=== PATIENT | male | born 1950 | race Caucasian/White ===

== ENCOUNTER 2019-02-15 09:41 | Emergency (ER) | payer BC, OTHER ==
--- OUTSIDE RECORDS SUMMARY | 2019-02-15 10:42 | XMS REPORT | Summary of Care ---
:1950 Author Organization [facility] Address [address] [place] [address] Care Team Providers Name Role Phone Saturnino Vela Primary Care Provider Reason for Referral Diagnostic Radiology (Routine) Status Reason Specialty Diagnoses / Procedures Referred By Contact Referred To Contact Open Radiology Diagnoses Chronic pain of left lower extremity Berny Sams, Procedures Spect CT Bone Whole Body [address] [place] [address] Email: [email or web address] Reason for Visit Reason Comments New Patient Bone lesion Encounter Details Date Type Department Care Team Description 02/09/2019 [facility] A, Chronic pain of left LLP lower extremity [address] Yakov [address] (Primary Dx) [address] [place] [id number] [phone] Allergies Active Allergy Reactions Severity Noted Date Comments Atorvastatin Other (See Comments) 07/27/2016 Muscle cramps documented as of this encounter (statuses as of 02/09/2019) Medications Medication Sig Dispensed Refills Start Date End Date Status atenolol (TENORMIN) 50 Take 50 mg by 0 02/18/2016 Active MG tablet mouth daily lisinopril Take 10 mg by 0 02/18/2016 Active (PRINIVIL,ZESTRIL) 10 mouth daily MG tablet aspirin 81 MG tablet Take 81 mg by 0 Active mouth daily. Magnesium 250 MG TABS Take 1 tablet by 0 Active mouth Two Times Daily ibuprofen Take 200 mg by 0 Active (ADVIL,MOTRIN) 200 MG mouth every 6 tablet (six) hours as needed for Pain prednisoLONE Acetate Apply to eye 0 Active (PRED FORTE OP) documented as of this encounter (statuses as of 02/09/2019) Active Problems Problem Noted Date Chronic pain of left lower extremity 02/09/2019 Low back pain potentially associated with radiculopathy 10/09/2018 Trochanteric bursitis, left hip 10/09/2018 Primary osteoarthritis of left knee 05/02/2018 Chronic pain of left knee 04/03/2018 Primary osteoarthritis of left hip 07/27/2016 Status post total replacement of left hip 06/14/2016 Calf swelling 06/14/2016 Left hip pain 06/14/2016 Osteoarthritis of left hip 05/05/2016 Hypertension Sleep apnea documented as of this encounter (statuses as of 02/09/2019) Social History Tobacco Use Types Packs/Day Years Used Date Former Smoker 0 Quit: 03/06/1979 Smokeless Tobacco: Never Used Comments: smoked for about 5 years Alcohol Use Drinks/Week oz/Week Comments No Sex Assigned at Date Recorded Not on file Job Start Date Occupation Industry Not on file Not on file Not on file Travel History Travel Start Travel End No recent travel history available. documented as of this encounter Last Filed Vital Signs Vital Sign Reading Time Taken Comments Blood Pressure - - Pulse - - Temperature - - Respiratory Rate - - Oxygen Saturation - - Inhaled Oxygen Concentration - - Weight 136.1 kg (300 lb) 02/09/2019 8:01 AM EST Height 177.8 cm (5' 10") 02/09/2019 8:01 AM EST Body Mass Index 43.05 02/09/2019 8:01 AM EST documented in this encounter Patient Instructions Patient InstructionsKatrin Pantoja LPN - 02/09/2019 8:00 AM ESTThe patient is instructed to call the office with any question/concerns or if symptoms worsen. documented in this encounter Progress Notes Tunde De León MD - 02/09/2019 8:00 AM EST Chief Complaint Patient presents with New Patient Bone lesion Patient also seen by resident physician and examined under my supervision. Pérez portions of the history and examination were repeated by me, and the entire resident note was reviewed. Modifications tothat evaluation are detailed here. NEW PATIENT, INITIAL ENCOUNTER, LEFT THIGH PAIN Episode of Care: Initial Symptoms: Chronic Anatomical Site: distal thigh Laterality: Left Injury Cause and Place of Occurrence: N/A Fracture Healing Status: N/A CC: left distal thigh pain HPI: Dex is a 68 y.o. White or male with left distal thigh pain for about 1 year. The patient describes sharp pain in the lateral aspect of the distal thigh that begins as soon as he starts walking. He does not have the pain with standing. He notes the pain worsens climbing up and down stairs. He denies any trauma to the knee. He has seen Dr Bran in the past for this issue. He has a left total hip arthroplasty by Dr Morse in 2017. He had no issues with the thigh the first year after his surgery. He feels the pain started insidiously one year later. He was noted to have some cortical lucencies in the proximal and mid left femur on xray. These were further worked up with a CT and MRI. 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 The lucencies were not found to be aggressive in nature. Dr Bran did also order a SPEP/UPEP which were normal. He presents now for a second opinion regarding his pain. He denies any constitutional symptoms. 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 Attempted treatment thus far has included OTC NSAIDs, Tylenol, physical therapy and intra-atricularsteroid injections. The patients goal at this time is to find the source of his pain. PMHx: Reviewed on current visit information sheet. 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 Rash elbow rash Sleep apnea Past Surgical History: Procedure Laterality Date CATARACT EXTRACTION Bilateral COLONOSCOPY ELBOW SURGERY 1979 tumor removed from right elbow JOINT REPLACEMENT Right 2009 right hip replacement JOINT REPLACEMENT Left 05/05/2016 [facility] via [employer] @ [facility] DE TOTAL HIP ARTHROPLASTY Left 05/05/2016 Procedure: LEFT TOTAL HIP REPLACEMENT ([employer], [employer], [place], 2ND ASSIST); Surgeon: Abran Bran MD; Location: OR ; Service: Orthopedics ; Laterality: Left; Current Outpatient Medications: aspirin 81 MG tablet, Take 81 mg by mouth daily., Disp: , Rfl: atenolol (TENORMIN) 50 MG tablet, Take 50 mg by mouth daily , Disp: , Rfl: 0 ibuprofen (ADVIL,MOTRIN) 200 MG tablet, Take 200 mg by mouth every 6 ( six) hours as needed for Pain, Disp: , Rfl: lisinopril (PRINIVIL,ZESTRIL) 10 MG tablet, Take 10 mg by mouth daily , Disp: , Rfl: 0 Magnesium 250 MG TABS, Take 1 tablet by mouth Two Times Daily, Disp: , Rfl: prednisoLONE Acetate (PRED FORTE OP), Apply to eye, Disp: , Rfl: Allergies Allergen Reactions Lipitor [Atorvastatin] Other (See Comments) Muscle cramps PSoHx: Social History Tobacco Use Smoking status: Former Smoker Packs/day: 0.00 Last attempt to quit: 03/06/1979 Years since quittin.9 Smokeless tobacco: Never Used Tobacco comment: smoked for about 5 years Substance Use Topics Alcohol use: No Drug use: No FHx: Cancer-related family history includes Cancer in his maternal uncle and maternal uncle. Family History Problem Relation Age of Onset Heart disease Father father of heart attack Arthritis Father father had hip arthritis Heart disease Maternal Uncle had open heart surgery Cancer Maternal Uncle colon cancer Cancer Maternal Uncle colon cancer Stroke Maternal Grandmother ROS: Comprehensive review of systems completed by patient and reviewed by me. Pertinent positive findings include nothing else. Otherwise negative. PHYSICAL EXAM: Healthy-appearing, well-developed, well-nourished, alert and oriented x 3. Mood showing no evidence of agitation, anxiety, or depression. HEENT: Normocephalic and atraumatic to inspection and palpation. Sclerae anicteric. Extraocular muscles intact. No conjunctivitis. Pupils equal, round, and reactive to light and accommodation. Oropharynx clear with no lesions. Mucous membranes pink and moist. Hearing within normal limits. NECK: No palpable thyromegaly, adenopathy, or masses. HEART: Regular rate and rhythm without murmurs. LUNGS: Clear to auscultation. No rales, rhonchi, or wheezes. Respiratory effort normal. ABDOMEN: No hepatosplenomegaly or soft tissue masses. Soft and nontender. LYMPH : No cervical, epitrochlear or popliteal adenopathy. SKIN: No jaundice to inspection. No nodules to palpation. Bilateral elbow rash PERIPHERAL VASCULAR EXAM: No cyanosis, clubbing, or edema in the distal extremities. Pulses are palpable distally. NEURO/MUSCULOSKELETAL: LLE: Hip internal rotation is limited and causes pain that radiates into the lateral thigh. Hip externalrotation 35 degrees. Hip abduction and adduction normal. Knee ROM normal and painless. Tenderness to palpation of the distal IT band. Minimal GT bursal tenderness. No varus/valgus instability in the knee. No significant knee effusion +Sensation to light touch to distribution of deep peroneal / superficial peroneal / tibial / saphenous / sural nerves +EHL/FHL/TA/Gastroc Toes warm, well perfused; palpable dorsalis pedis and posterior tibial pulses Radiology Review: All imaging was reviewed by me with patient and/or family members. XR of the left femur demonstrate several small subcortical lucencies in the proximal and mid femur. There is no cortical erosion or periosteal reaction. Bilateral total hip prostheses with no evidence of loosening. "FINDINGS: Right: Right total hip arthroplasty is seen and the femoral and acetabular components arewell seated and articulate appropriately. No evidence of loosening, malalignment or periprosthesis fracture. Periarticular soft tissues are normal. Left: Left total hip arthroplasty is again seen and the femoral and acetabular components are well seated. No malalignment or evidence of loosening and there is no periprosthesis fracture. Thin lucencywithin the lateral proximal femoral shaft cortex at the level of the distal tip of the femoral stem is unchanged. In addition, few tiny additional lucencies within the lateral cortex at the mid left femoral shaft level are also unchanged. No periosteal reaction or endosteal scalloping. No associated soft tissue mass effect or soft tissue mass. IMPRESSION: 1. Overall, no significant interval change in asymmetric small lucencies within the lateral cortex of the proximal and mid left femoral shaft. No adjacent periostitis or endosteal reaction to suggest aggressive etiology and the lack of any significant interval change suggests nonaggressive, although nonspecific etiology. Continued radiographic follow-up is advised to confirm stability. 2. Satisfactory postoperative appearance of bilateral total hip arthroplasties. " " FINDINGS: Diffuse osteopenia. Postsurgical changes of left total hip arthroplasty are again seen, and metallic streak artifact from the arthroplasty mildly limits evaluation at some periprosthesis levels. The femoral and acetabular components appear well seated and articulate appropriately. No evidence of hardware loosening or failure. No periprosthesis fracture. Small longitudinal lucency within the proximal lateral femoral diaphysis at the level of the distal femoral stem is unchanged and corresponds to the lucency seen radiographically. Small additional cortical lucent defects within the lateral mid femoral shaft cortex are also unchanged, with additional small lucent cortical defect also noted within the posterior and medial mid femoral shaft cortex, although less prominent lateral foci. No endosteal scalloping or aggressive periosteal reaction or osseous erosion there is no adjacent soft tissue mass or soft tissue component. Patella is normal in position at the trochlear groove with moderate degenerative lateral patellofemoral joint space narrowing. 7.8 x 3.8 x 7.2 cm medial compartment proximal left thigh homogeneous lipoma is unchanged. IMPRESSION: 1. Satisfactory postoperative appearance of left total hip arthroplasty. 2. Stable multiple small lucent cortical foci within the proximal to mid left femoral shaft, which correspond to the lucencies described radiographically. The lack of any significant interval change and lack of any observed adjacent periostitis or endosteal scalloping overall favors nonaggressive etiology, although these remain nonspecific and continued follow-up exam is advised, and follow-up could be performed with radiographs. 3. Stable 7.8 x 3.8 x 7.2 cm left proximal thigh medial compartment lipoma. " To my review, the cortices may be thickened on both femurs. Assessment: 1) 68 year old male with history of bilateral total hip arthroplasties who presents with 1 year of left distal thigh pain. No evidence of loosening on XR, CT, or MRI imaging. May be stress response vsITB syndrome vs thigh pain associated with femoral component. Of note, the geometry of the femoral component is different than the right, and he has no pain on the right. 2) Incidentally noted cortical lucencies within the left femur that appear non aggressive and stable. These appear to my review to be associated with some diaphyseal probably bilateral cortical thickening, so this brings up the DDX of Ribbing's disease (hereditary diaphyseal sclerosis) vs Camurati-Engelmann disease vs Melorheostosis. A BS should help determine if this is the case, as the sites of involvement would light up. 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 For his asymptomatic lipoma, close observation is reasonable. We will have him return for follow up of the left thigh after he completes his imaging studies. CC: Saturnino Vela PA Encounter Diagnosis Name Primary? Chronic pain of left lower extremity Yes Orders Placed This Encounter Spect CT Bone Whole Body More than 40 minutes spent with patient with more than 1/2 spent on care and counseling. documented in this encounter Plan of Treatment Name Type Priority Associated Diagnoses Order Schedule Spect CT Bone Whole Imaging Routine Chronic pain of left Expected: 2018, Body lower extremity Expires: 05/10/2020 Health Maintenance Due Date Last Done Comments Hepatitis C Screening (B. 1950 [id number]) MMR Vaccines (1 of 1 - Standard 10/07/1951 series) Varicella Vaccines (1 of 2 - 10/07/1951 2-dose childhood series) DTaP,Tdap,and Td Vaccines (1 - 10/07/1958 Tdap) Colon Cancer Screening 10 yrs 10/07/2001 Zoster Vaccines (1 of 2) 10/07/2001 Pneumococcal Vaccine: 65+ Years (1 10/07/2016 of 2 - PCV13) Influenza Vaccine 11/28/2018 HIB Vaccines Aged Out No longer eligible based on patient's age to complete this topic Hepatitis A Vaccines Aged Out No longer eligible based on patient's age to complete this topic Hepatitis B Vaccines Aged Out No longer eligible based on patient's age to complete this topic IPV Vaccines Aged Out No longer eligible based on patient's age to complete this topic Pneumococcal Vaccine: Pediatrics Aged Out No longer eligible based on (0 to 5 Years) and At-Risk patient's age to complete this Patients (6 to 64 Years) topic documented as of this encounter Implants Implanted Type Area Furniture Duster Device Shelf Model / Identifier Expiration Serial / Lot Date Head Fem V4 Biolx 28mm +0. - [id number] Left: Hip LENKA 12/13/2020 [id number] / Implanted: Qty: 1 on 05/05/2016 by Toney Bran MD at MD [employer] / [id number] Hip Stem Angled Accoladeii 127. - [id number] Left: Hip LENKA 2020 [id number] / Implanted: Qty: 1 on 05/05/2016 by Toney Bran MD at OR [employer] / [id number] Insert Restor Adm Cup 28mmfor Od 48mm Cup - [id number] Left: Hip LENKA 01/14/2021 [id number] / Implanted: Qty: 1 on 05/05/2016 by Toney Bran MD at OR [employer] / [id number] Liner Mdm 42mm. - [id number] Left: Hip LENKA 01/19/2021 [id number] / Implanted: Qty: 1 on 05/05/2016 by Toney Bran MD at OR [employer] / [id number] Screw Bone Cancell 6.5 20mm - [id number] Left: Hip LENKA 04/05/2021 [id number] / Implanted: Qty: 1 on 05/05/2016 by Toney Bran MD at OR [employer] / [id number] Shell [employer] [id number] - [id number] Left: Hip LENKA 11/04/2020 [id number] / Implanted: Qty: 1 on 05/05/2016 by Toney Bran MD at OR [employer] / [id number] documented as of this encounter Results Not on filedocumented in this encounter Visit Diagnoses Diagnosis Chronic pain of left lower extremity - Primary documented in this encounter
--- OUTSIDE RECORDS SUMMARY | 2019-02-15 10:42 | XMS REPORT | Summary of Care ---
:1950 Author Organization [facility] Address [address] [place] [address] Care Team Providers Name Role Phone Saturnino Vela Primary Care Provider Reason for Visit Reason Comments Follow-up MRI left femur, lumbar spine 12/26/18 Encounter Details Date Type Department Care Team Description 01/08/2019 Office Visit [facility] Shant Moralez Robert Bone lesion ( Primary Dx); ANASTASIA Michaud MD Left thigh pain; [address] Status post total [place] [id number] [phone] Allergies Active Allergy Reactions Severity Noted Date Comments Atorvastatin Other (See Comments) 07/27/2016 Muscle cramps documented as of this encounter (statuses as of 01/08/2019) Medications Medication Sig Dispensed Refills Start Date [...] as of this encounter (statuses as of 01/08/2019) Active Problems Problem Noted Date Low back pain potentially associated with radiculopathy 10/09/2018 Trochanteric bursitis, left hip 10/09/2018 Primary osteoarthritis of left knee 05/02/2018 Chronic pain of left knee 04/03/2018 Primary osteoarthritis of left hip 07/27/2016 Status post total replacement of left hip 06/14/2016 Calf swelling 06/14/2016 Left hip pain 06/14/2016 Osteoarthritis of left hip 05/05/2016 Hypertension Sleep apnea documented as of this encounter (statuses as of 01/08/2019) Social History Tobacco Use Types Packs/Day Years [...] of this encounter Last Filed Vital Signs Not on filedocumented in this encounter Patient Instructions Patient InstructionsAmna Graham LPN - 01/08/2019 9:30 AM ESTThe patient is instructed to call the office with any question/concerns or if symptoms worsen. documented in this encounter Progress Notes Toney Bran MD - 01/08/2019 9:30 AM EST Chief complaint: Chief Complaint Patient presents with Follow-up MRI left femur, lumbar spine 12/26/18 HPI: Patient returns for reevaluation of his left-sided leg pain. He continues to have severe pain,primarily along the distal IT band wrapping around the anterior aspect of the left knee and into themedial distal femur. He has no pain with standing or Sitting. He has severe pain with activity, And stairs and moderate pain with just walking straight. It was noted on a CT scan that he had multiple small lucent cortical defects within the left femoralshaft. This was different than the contralateral side. Given these findings we have initiated further workup. He was able to obtain a standup MRI of the lumbar spine in left femur in [place]. He returns today to review these MRIs. Blood work checking SPEP and UPEP were negative.Intra-articular injection to the left knee as well as a trochanteric injection to the greater trochanters have provided no relief. We attempted a bone scan but the patient cannot lie flat due to diaphragm injury, and he was unable to tolerate. History of left total hip replacement, April 2016. Unfortunately been unable to come up with an etiology of the patient's severe distal thigh pain radiating anteriorly. He is becoming very frustrated. The patient's past medical history, surgical history, medications, social history, allergies, familyhistory and review of systems are reviewed with the patient. Pertinent positives are noted in the HPI. Updates and changes are noted in the EPIC system. PHYSICAL EXAM: 5 feet 10 inches tall, 310 pounds Patient appears healthy and in no acute distress. Alert and oriented with normal mood and affect. They walk with a limp. No ambulatory aids Left leg exam: Patient with no pain with range of motion of the left hip. Incisions well-healed. Negative [place]inchfield. Mild trochanteric tenderness. Patient has no point tenderness distally but reports pain in the distal anterior thigh. He has Minimal tenderness in the medial joint space. NegativeMcMurray. Negative Dario. No knee instability. Neutral alignment. No swelling. Imaging: MRI of the lumbar spine demonstrates some posterior disc bulges without nerve impingement at L1-2 and L4-5. MRI of the left femur is reviewed. He has a large abductor chari lipoma measuring9 x 9 x 5 cm. No significant abnormalities are noted in the femur either in the region of the subcortical lucencies, or around his total hip replacement. Previous MRI of the left knee was more or less negative as well. Impression: 68-year-old male with severe left distal thigh pain Plan: I am not sure what is causing the patient's thigh pain, nor how to help him. I am certainly running out of ideas at this point.I do not know whether the finding on CT scan, the multiple subcortical lucencies, are incidental findings, or may be responsible for her symptoms. Certainly I do not know what the etiology of these lucencies are. It could be from bone remodeling and osteoporosis. Itcould be from some type of stress shielding from his total hip replacement. He could be a primary bone issue, but with a negative MRI, and benign CT scan, I find it hard to believe that this is the etiology of his severe pain. I do not believe the femoral stem is loose, and I am unable to reproduce any pain with range of motion of his hip, leading me to believe that it is not the hip causing his pain. And I cannot find anything in the knee to explain his pain as well. Certainly he had no improvement with the diagnostic injection. He has no pain sitting or or at rest and only seems to have pain with weightbearing. At this point of recommending a second opinion for the patient. I would like for him to see my partner Dr. Sams. I like to get Dr. Sams's opinion as to whether the findings on the CT scan and thelateral cortex of the femur, may be responsible for his symptoms. In whether Dr. Sams has any opinion as to whether prophylactic stabilization with a long plate may benefit the patient. And finallywhether he has any other ideas as to the source of his pain, whether it is coming from his hip or knee. We can arrange for this second opinion. And I appreciate Dr. Sams's advice in advance. This document was dictated using Mod[employer]oth software. A reasonable attempt at proof reading has been made to minimize errors. Please call our office if you have any questions. documented in this encounter Plan of Treatment Date Type Specialty Care Team Description 02/09/2019 Office Visit Orthopedic Surgery Berny Sams MD [address] [place], [place] [id number] Health Maintenance Due Date Last Done Comments Hepatitis C Screening (B. [id number]) MMR Vaccines (1 of 1 - Standard [birth year]07/1951 series) DTaP,Tdap,and Td Vaccines (1 - 10/07/1958 [...] this Patients (6 to 64 Years) topic Varicella Vaccines Aged Out No longer eligible based on patient's age to complete this topic documented as of this encounter Implants Implanted Type Area Nurses Medical Assistants Phlebotomists Device Shelf Model / Identifier Expiration Serial / Lot Date Head Fem V4 Biolx 28mm +0. - [id number] Left: Hip LENKA 12/13/2020 [id number] / Implanted: Qty: 1 on 05/05/2016 by Toney Bran MD at OR [employer] / [id number] Hip Stem Angled Accoladeii 127. - [id number] Left: Hip LENKA 2020 [id number] / Implanted: Qty: 1 on 05/05/2016 by Toney Bran MD at OR [employer] / [id number] Insert Restor Adm Cup 28mmfor Od 48mm Cup - [id number] Left: Hip LENKA 01/14/2021 [id number] / Implanted: Qty: 1 on 05/05/2016 by Toney Bran MD at OR [employer] / [id number] Liner Mdm 42mm. - [id number] Left: Hip LENKA 01/19/2021 [id number] / Implanted: Qty: 1 on 05/05/2016 by Toney Bran MD at OR [employer] / [id number] Screw Bone Cancell 6.5 20mm - [id number] Left: Hip LENKA 04/05/2021 [id number] / Implanted: Qty: 1 on 05/05/2016 by Toney Bran MD at OR [employer] / [id number] Shell [employer]ident [employer]et [id number] - [id number] Left: Hip LENKA 11/04/2020 [id number] / Implanted: Qty: 1 on 05/05/2016 by Toney Bran MD at OR [employer] / [id number] documented as of this encounter Results Not on filedocumented in this encounter Visit Diagnoses Diagnosis Bone lesion - Primary Disorder of bone and cartilage, unspecified Left thigh pain Pain in limb Status post total replacement of left hip documented in this encounter
--- OUTSIDE RECORDS SUMMARY | 2019-02-15 10:42 | XMS REPORT | Continuity of Care Document ---
:1950 External Reference #:[id number] Author Name Chuy Nobles MD Address [address] [place] [id number] Care Team Providers Name Role Phone Saturnino Vela PA - Medical Care Team Information Head Nurse [phone] Problems Active Problems Provider Date Tenosynovitis of hand Abdoul Correa MD Onset: 12/15/2011 Social History Type Date Description Comments Sex Unknown Tobacco Use Start: Unknown End: Quit Unknown Smoking Status Reviewed: 12/28/18 Quit ETOH Use Rarely consumes alcohol Tobacco Use Start: Unknown End: Patient is a former smoked 1/2 ppd x 3 Unknown smoker years Quit 40 years ago Recreational Drug Use Denies Drug Use Allergies, Adverse Reactions, Alerts Active Allergies Reaction Severity Comments Date NKDA 12/15/2011 Seasonal 12/15/2011 Medications Active Medications SIG Qnty Indications Ordering Date Provider Ofloxacin 1 drop left eye 1units H25.812 Chuy Nobles MD 12/14/2018 (Ophthalmic) four times daily 0.3% for 10 days Solution beginning three days before surgery Prednisolone Acetate 1 drop left eye 5ml H25.812 Chuy Nobles MD 2018 1% four times daily Suspension for four weeks; please begin after surgery Ketorolac 1 drop operative 5units H25.812 Chuy Nobles MD 12/14/2018 Tromethamine eye 4 times daily 0.5% for 2 weeks; Solution please begin 3 days prior to operation Lisinopril 1 po qd 30tabs Unknown 10mg Tablets Aspir-Low 1 po qd Unknown 81mg Tablets Atenolol 1 po qd 30tabs Unknown 50mg Tablets Bipap 02 At 3L Unknown Ibuprofen prn Unknown 200mg Tablets Magnesium 1 tab/day, otc Unknown 500mg Tablets History Medications Ofloxacin 1 drop right eye 1units H25.813 Chuy Nobles 11/14/2018 - (Ophthalmic) four times daily 12/13/2018 0.3% for 10 days Solution beginning three days prior to the operation Prednisolone Acetate 1 drop right eye 5ml H25.813 Chuy Nobles 2018 - four times daily 12/14/2018 1% Suspension for four weeks; please begin after surgery Ketorolac 1 drop operative 5units H25.813 Chuy Nobles 11/14/2018 - Tromethamine eye 4 times daily 12/13/2018 0.5% for 2 weeks; Solution please begin 3 days prior to operation Immunizations Description No Information Available Vital Signs Date Vital Result Comment 11/01/2018 1:57pm BP Systolic Sitting Left Arm 118 mmHg BP Diastolic Sitting Left Arm 72 mmHg Heart Rate 56 /min Respiratory Rate 18 /min Height 69.5 inches 5'9.50" Weight 292.00 lb BMI (Body Mass Index) 42.5 kg/m2 BSA (Body Surface Area) 2.44 m2 [place] body weight in kilograms 74 kg O2 % BldC Oximetry 93 % Ora 10/16/2018 7:55am BP Systolic 109 mmHg BP Diastolic 73 mmHg Body Temperature 97.9 F Heart Rate 62 /min Height 69.5 inches 5'9.50" Weight 289.00 lb BMI (Body Mass Index) 42.1 kg/m2 BSA (Body Surface Area) 2.43 m2 [place] body weight in kilograms 74 kg O2 % BldC Oximetry 85 % Results Description No Information Available Procedures Date Code Description Status 12/20/2018 25531 Extracapsular Cataract Removal W/Insertion Of Intraocular Completed Lens pr 11/22/2018 64164 Extracapsular Cataract Removal W/Insertion Of Intraocular Completed Lens pr 11/14/2018 95923 Ophthalmic Biometry By Partial Coherence Interferometry Completed W/Intra 11/10/2018 72819 Bronchospasm Provocation Evaluation Multi Spirometric Completed Determinati 11/10/2018 22480 Spirometry Completed 10/17/2018 53105 Eye Exam Est Patient Comprehensive Completed 10/16/2018 85304 Debridement Nails Any Method 1-5 Completed 10/16/2018 58151 Pare Hyperkeratotic Lesion, Single Completed 07/14/2018 53272 Debridement Nails Any Method 1-5 Completed 07/14/2018 63566 Pare Hyperkeratotic Lesion, Single Completed Medical Devices Description No Information Available Encounters Type Date Location Provider Dx Diagnosis Office Visit 11/01/2018 Pulmonology Timothy Wu MD 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 Z01.818 Encounter for other preprocedural examination G47.33 Obstructive sleep apnea (adult) (pediatric) Assessments Date Code Description Provider 12/28/2018 Z96.1 Presence of intraocular lens Chuy Nobles MD 12/21/2018 Z96.1 Presence of intraocular lens Chuy Nobles MD 12/20/2018 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, Chuy Nobles MD left eye 12/20/2018 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 12/14/2018 Z96.1 Presence of intraocular lens Chuy Nobles MD 12/14/2018 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, Chuy Nobles MD left eye 11/30/2018 Z48.810 Encounter for surgical aftercare Chuy Nobles MD following surgery on the sense organs 11/30/2018 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, Chuy Nobles MD left eye 11/30/2018 Z96.1 Presence of intraocular lens Chuy Nobles MD 11/23/2018 Z48.810 Encounter for surgical aftercare Chuy Nobles MD following surgery on the sense organs 11/23/2018 Z96.1 Presence of intraocular lens Chuy Nobles MD 11/22/2018 H25.811 Combined forms of age-related cataract, Chuy Nobles MD right eye 11/22/2018 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 11/14/2018 H25.813 Combined forms of age-related cataract, Chuy Nobles MD bilateral 11/14/2018 G47.33 Obstructive sleep apnea (adult) Chuy Nobles MD (pediatric) 11/10/2018 J98.6 Disorders of diaphragm Rakesh Porter MD 11/01/2018 J98.6 Disorders of diaphragm Timothy Wu MD 11/01/2018 Z01.818 Encounter for other preprocedural Timothy Wu MD examination 11/01/2018 G47.33 Obstructive sleep apnea (adult) Timothy Wu MD (pediatric) 10/17/2018 H25.813 Combined forms of age-related cataract, Chuy Nobles MD bilateral 10/16/2018 B35.1 Tinea unguium Micheal Narayan, DPM 10/16/2018 M79.674 Pain in right toe(s) Micheal Narayan, DPM 10/16/2018 M79.675 Pain in left toe(s) Micheal Narayan, DPM 10/16/2018 L85.8 Other specified epidermal thickening Micheal Narayan DPRyann 07/14/2018 B35.1 Tinea unguium Micheal Narayan, DPM 07/14/2018 M79.674 Pain in right toe(s) Micheal Narayan, DPM 07/14/2018 M79.675 Pain in left toe(s) Micheal Narayan, DPM 07/14/2018 L85.8 Other specified epidermal thickening Micheal Narayan, DPM 07/14/2018 M79.672 Pain in left foot Micheal Narayan DPM Plan of Treatment Future Appointment(s):12/31/2019 8:15 am - Chuy Nobles MD at [id number]/ 21/2019 8:00 am - Micheal Narayan DPM at Podiatry [facility]sakn7512/28/2018 - Chuy Nobles MDZ96.1 Presence of intraocular lensComments:- s/p ce, iol left eye , pod #8- no sign of infection- IOL, IOP ok- reviewed drops, signs ofinfection - please stop ofloxacin- ketorolac 1 drop operative eye four times daily for 1 more week- prednisolone 1 drop operative eye four times daily for 4 weeks total* * following cataract surgery, left eye 12/20/18, visual acuity at distance without correction 20/20 1 year exam; please call with ? or concerns -- s/p ce, iol right eye, post-op week #5, 11/22/18- no sign of infection- IOL, IOP ok- reviewed drops, signs of infection- please stop ofloxacin- please stop ketorolac- please stop prednisoloneFollow up:1 year exam; please call with ? or concerns; long Functional Status Description No Information Available Mental Status Description No Information Available Referrals Refer to Dr Reason for Referral Status Appt Date Timothy Wu MD - history of paralyzed diaphragm, right sided - on Closed 11/01/2018 bipap - respectfully request pulmonary evaluation to see if we need to do anything more to optimize his pulmonary health to help the safety of the operation thanks [address] [place] [address] [phone]
--- OUTSIDE RECORDS SUMMARY | 2019-02-15 10:42 | XMS REPORT | Continuity of Care Document ---
:1950 External Reference #:[id number] Author Name Chuy Nobles MD Address [address] [place] [address] Care Team Providers Name Role Phone Saturnino Vela PA - Medical Care Team Information Transporter Driver [phone] Problems Active Problems Provider Date Tenosynovitis of hand Abdoul Correa MD Onset: 12/15/2011 Social History Type Date Description Comments Sex Unknown Tobacco Use Start: Unknown End: Quit Unknown Smoking Status Reviewed: 12/21/18 Quit ETOH Use Rarely consumes alcohol Tobacco [...] kg/m2 BSA (Body Surface Area) 2.44 m2 [place] body weight in kilograms 74 kg O2 % BldC Oximetry 93 % Ora 10/16/2018 7:55am BP Systolic 109 mmHg BP Diastolic 73 mmHg Body Temperature 97.9 F Heart Rate 62 /min Height 69.5 inches 5'9.50" Weight 289.00 lb BMI (Body Mass Index) 42.1 kg/m2 BSA (Body Surface Area) 2.43 m2 [place] body weight in kilograms 74 kg O2 % BldC Oximetry 85 % Results Description No Information Available Procedures Date Code Description Status 11/22/2018 67177 Extracapsular Cataract Removal W/Insertion Of Intraocular Completed Lens pr 11/14/2018 46749 Ophthalmic Biometry By Partial Coherence Interferometry Completed W/Intra 11/10/2018 48143 Bronchospasm Provocation Evaluation Multi Spirometric Completed Determinati 11/10/2018 99314 Spirometry Completed 10/17/2018 09101 Eye Exam Est Patient Comprehensive Completed 10/16/2018 32502 Debridement Nails Any Method 1-5 Completed 10/16/2018 46257 Pare Hyperkeratotic Lesion, Single Completed 07/14/2018 81766 Debridement Nails Any Method 1-5 Completed 07/14/2018 87804 Pare Hyperkeratotic Lesion, Single Completed Medical Devices Description No Information Available Encounters Type Date Location Provider Dx Diagnosis Office Visit 11/01/2018 Pulmonology Timothy Wu MD 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 Z01.818 Encounter for other preprocedural examination G47.33 Obstructive sleep apnea (adult) (pediatric) Assessments Date Code Description Provider 12/21/2018 Z96.1 Presence of intraocular lens Chuy Nobles MD 12/14/2018 Z96.1 Presence of intraocular lens Chuy [...] cataract, Chuy Nobles MD bilateral 10/16/2018 B35.1 TinMicheal Beckford DPM 10/16/2018 M79.674 Pain in right toe(s) Micheal Narayan, DPRyann 10/16/2018 M79.675 Pain in left toe(s) Micheal Narayan, DPRyann 10/16/2018 L85.8 Other specified epidermal thickening Micheal Narayan DPM 07/14/2018 B35.1 Tinea unguium Micheal Narayan DPM 07/14/2018 M79.674 Pain in right toe(s) Micheal Narayan, QIANA 07/14/2018 M79.675 Pain in left toe(s) Micheal Narayan, QIANA 07/14/2018 L85.8 Other specified epidermal thickening Micheal Narayan, QIANA 07/14/2018 M79.672 Pain in left foot Micheal Narayan DPM Plan of Treatment Future Appointment(s):12/28/2018 9:30 am - Chuy Nobles MD at [id number]/ 21/2019 8:00 am - Micheal Narayan DPM at Podiatry Ukingm3512/21/2018 - Chuy Nobles MDZ96.1 Presence of intraocular lensComments:- s/p ce, iol left eye , pod #1- no sign of infection- IOL, IOP ok- reviewed drops, signs ofinfection - ofloxacin 1 drop operative eye four times daily for 1 week- ketorolac 1 drop operative eye four times daily for 2 weeks- prednisolone 1 drop operative eye four times daily for 4 weeks1 week post-op dilate os following cataract surgery, left eye 12/20/18, visual acuity at distance without correction 20/20 * * s/p ce, iol right eye, post-op week #4, 11/22/18- no sign of infection- IOL, IOP ok- reviewed drops, signs of infection- please stop ofloxacin- please stop ketorolac- please stop prednisoloneFollow up:1 week for post-op check; please call sooner with ? or concerns ; dilate os Functional Status Description No Information Available Mental [...] the safety of the operation thanks [address] [place] [address] [phone]
[2019-02-15 10:56] VITALS: BP 118/52
--- NOTE | 2019-02-15 11:21 | UC ---
Throat Pain/Nasal Amando HPI - HPI Summary HPI Summary: Pt presents with c/o of frontal sinus pain and body aches. Pt has hx of sinus infections and thinks he has one now. Pt has PMH of "paralyzed" diaphragm,l denies SOB, wheezing or CP - History of Current Complaint Chief Complaint: UCRespiratory Stated Complaint: SINUS COMPLAINT,HEADACHE Time Seen by Provider: 02/15/19 11:10 Hx Obtained From: Patient Onset/Duration: Gradual Onset, Lasting Days, Still Present, Worse Since - onset Severity: Moderate Pain Intensity: 6 Cough: None Associated Signs & Symptoms: Positive: Sinus Discomfort Related History: Other (Noted In Comments) - dysfunctional diaphragm - Epiglottits Risk Factors Epiglottis Risk Factors: Negative - Allergies/Home Medications Allergies/Adverse Reactions: Allergies Allergy/AdvReac Type Severity Reaction Status Date / Time atorvastatin [From Lipitor] Allergy Leg Cramps Verified 02/15/19 10:48 sumatriptan [From Imitrex] Allergy Chest Pain Verified 02/15/19 10:48 Home Medications: Home Medications Aspirin EC TAB* [Ecotrin EC Low Dose 81 MG*] 81 mg PO DAILY 02/15/19 [History Confirmed 02/15/19] Atenolol TAB* [Tenormin TAB* 50 MG] 50 mg PO DAILY 02/15/19 [History Confirmed 02/15/19] Lisinopril TAB* [Prinivil TAB 10 MG*] 10 mg PO DAILY 02/15/19 [History Confirmed 02/15/19] Magnesium Oxide TAB* [MagOx 400 TAB*] 400 mg PO DAILY 02/15/19 [History Confirmed 02/15/19] PMH/Surg Hx/FS Hx/Imm Hx Previously Healthy: Yes Cardiovascular History: Cardiac Disease, Hypertension Respiratory History: Other - dysfunctional diaphragm - Surgical History Surgical History: Yes Surgery Procedure, Year, and Place: Bilateral Cat[place] Ext[place], 2018[place]; [place]; Right Elbow Benign Tumor, ~, [place] - Family History Known Family History: Positive: Hypertension - Social History Occupation: Retired Lives: With Family Alcohol Use: Rare Substance Use Type: None Smoking Status (MU): Former Smoker Type: Cigarettes Length of Time of Smoking/Using Tobacco: < 1PPD x 2 Years Have You Smoked in the Last Year: No When Did the Patient Quit Smoking/Using Tobacco: 1979 - Immunization History Vaccination Up to Date: Yes Review of Systems All Other Systems Reviewed And Are Negative: Yes Constitutional: Positive: Fatigue Skin: Positive: Negative Eyes: Positive: Negative ENT: Positive: Sinus Congestion, Sinus Pain/Tenderness Respiratory: Positive: Negative Cardiovascular: Positive: Negative Gastrointestinal: Positive: Negative Genitourinary: Positive: Negative Motor: Positive: Negative Neurovascular: Positive: Negative Musculoskeletal: Positive: Negative Neurological: Positive: Headache Psychological: Positive: Negative Is Patient Immunocompromised?: No Physical Exam Triage Information Reviewed: Yes Appearance: Ill-Appearing Vital Signs: Initial Vital Signs Temp 98.4 F 02/15/19 10:47 Pulse 74 02/15/19 10:47 Resp 18 02/15/19 10:47 BP 118/52 02/15/19 10:47 Pulse Ox 92 02/15/19 10:47 Vital Signs Reviewed: Yes Eye Exam: Normal ENT: Positive: Sinus tenderness Dental Exam: Normal Neck exam: Normal Respiratory: Positive: Decreased breath sounds Cardiovascular Exam: Normal Musculoskeletal Exam: Normal Neurological Exam: Normal Psychological Exam: Normal Throat Pain/Nasal Course/Dx - Differential Dx/Diagnosis Differential Diagnosis/HQI/PQRI: Sinusitis, URI Provider Diagnosis: Sinusitis Discharge ED - Sign-Out/Discharge Documenting (check all that apply): Patient Departure All imaging exams completed and their final reports reviewed: No Studies - Discharge Plan Condition: Stable Disposition: HOME Prescriptions: Amoxicillin PO (*) [Amoxicillin 875 MG (*)] 875 mg PO Q12H #20 tab Patient Education Materials: Sinusitis (ED) Referrals: Saturnino Vela PA [Primary Care Provider] - If Needed Additional Instructions: Please follow up with your PCP and your eyelet row marker as soon as needed. - Billing Disposition and Condition Condition: STABLE Disposition: Home - Attestation Statements Provider Attestation: Per institutional requirements, I have reviewed the chart, however, I was not consulted specifically or made aware of this patient by the midlevel provider. I did not personally evaluate, interact with , or disposition this patient.
== END 2019-02-15 11:30 | disposition home or self-care (01) ==
LOC: UCCORT 09:41
DX: J32.9 Chronic sinusitis, unspecified (principal); I10 Essential (primary) hypertension; Z79.899 Other long term (current) drug therapy; Z88.8 Allergy status to other drugs, medicaments and biological substances; Z79.82 Long term (current) use of aspirin; Z87.891 Personal history of nicotine dependence
CPT/HCPCS: 99212; G0463